=== PATIENT | female | born 1995 | race Two or more races ===

== ENCOUNTER 2025-09-07 15:06 | Inpatient (IN) | payer MEDICAID, OTHER ==
[~2025-09-07] VITALS: Ht 165.1 cm; Wt 48.9 kg
--- NOTE | 2025-09-07 18:50 | ED.PDOC ---
History of Present Illness HPI Comments 30 y/o F presents with c/c of nonradiating, LLQ abdominal pain, nausea, vomiting, fever, chills, lightheadedness, and dizziness x3 days. Patient also reports on passing out 4 times, already, from not eating properly following initial onset of symptoms. Patient mentions on her menstrual period being heavy, lately, as well. Only history reported of daily alcohol and nicotine vape use. She denies any further acute symptoms. REVIEW OF SYSTEMS: General: No fever, no chills, HEENT: No neck pain, no blurred vision Cardiac: No chest pain. No palpitations. Lungs: No shortness of breath, GI: No abdominal pain, no vomiting Musculoskeletal: No joint pain , no back pain Skin: No rash, no wound Neuro: No headache, no dizziness, no syncope PHYSICAL EXAM: General: Awake, alert and oriented. No acute distress. Skin: Skin in warm, dry and intact without rashes or lesions. HEENT: The head is normocephalic and atraumatic. Conjunctivae are clear without exudates or hemorrhage. Sclera is non-icteric. Neck: Normal range of motion. No JVD. Cardiac: Regular rate Respiratory: No signs of respiratory distress. No Stridor. Extremities: Upper and lower extremities are atraumatic in appearance without deformity. Neurological: The patient is awake, alert and oriented to person, place, and time with normal speech. Speech is clear. There is no facial asymmetry. Psychiatric: Appropriate mood and affect. Good judgement and insight. Chief Complaint: Nausea/Vomiting Time Seen by MD: 18:46 Reviewed Notes: Nurses Notes, Medications, Allergies Allergies: Coded Allergies: NO KNOWN ALLERGIES (Unverified , 09/07/25) Information Source: Patient Mode of Arrival: Ambulatory Severity: Moderate Timing: Days Duration: Since onset Prehospital treatment: None Past Medical History PAST MEDICAL HISTORY: Denies Surgical History: Denies all surgeries FREELANCE PATTERNMAKER History: No Pertinent FREELANCE PATTERNMAKER History Family History Family History: Reviewed,noncontributory to illness, No family hx of Cancer, No family hx of DM, No family hx of Heart jeannie, No family hx of HTN, No family hx ofKidney jeannie, No family hx of Liver jeannie, No family hx of Lung jeannie, No family hx of Stroke Social History Smoker: Other (Nicotine vape use-daily) Alcohol: Heavy (Daily) Drugs: Denies Drug Use Lives In: Home Was a procedure done? Was a procedure done?: No Differential Dx Considerations may include: Differential diagnoses considered include: Abdominal aortic aneurysm, [place], esophageal rupture, intestinal obstruction, mesenteric ischemia, perforated viscus or solid organ rupture, CHF with hepatomegaly, pneumonia, abscess, appendicitis, biliary disease, diverticulitis, gastritis, gastroenteritis, hepatitis, hernia, inflammatory bowel disease, pancreatitis, peptic ulcer disease, urinary tract infection, ureteral colic, constipation, GERD, irritable syndrome, abdominal wall pain, nonspecific abdominal pain, herpes zoster, nephrolithiasis. [ ]Also ruptured ectopic , ovarian torsion/cyst, tubo- ovarian abscess, PID, endometriosis, mittleschmerz. X-Ray, Labs, Meds, VS Vital Signs Date Time Temp Pulse Resp B/P (MAP) Pulse Ox O2 Delivery O2 Flow Rate FiO2 09/07/25 20:26 99.0 09/07/25 18:02 97.8 112 12 137/94 (108) 96 97.8 09/07/25 15:08 97.7 100 16 108/75 100 97.7 Lab Test 09/07/25 19:01 09/07/25 18:56 Range/Units White Blood Count 7.6 4.4-10.8 10^3/uL Red Blood Count 3.96 L 4.0-5.20 10^6/uL Hemoglobin 13.8 12.2-16.2 g/dL Hematocrit 39.5 36.0-46.0 % Mean Corpuscular Volume 99.7 80.0-100.0 fL Mean Corpuscular Hemoglobin 34.8 H 28.0-32.0 pg Mean Corpuscular Hemoglobin Concent 34.9 32.0-36.0 g/dL Red Cell Distribution Width 13.6 11.8-14.3 % Platelet Count 295 140-450 10^3/uL Mean Platelet Volume 7.3 6.9-10.8 fL Neutrophils (%) (Auto) 76.0 37.0-80.0 % Lymphocytes (%) (Auto) 15.6 10.0-50.0 % Monocytes (%) (Auto) 7.8 0.0-12.0 % Eosinophils (%) (Auto) 0.0 0.0-7.0 % Basophils (%) (Auto) 0.6 0.0-2.0 % Neutrophils # (Auto) 5.7 1.6-8.6 10 ^3/uL Lymphocytes # (Auto) 1.2 0.4-5.4 10 ^3/uL Monocytes # (Auto) 0.6 0-1.3 10 ^3/uL Eosinophils # (Auto) 0 0-0.8 10 ^3/uL Basophils # (Auto) 0 0-0.2 10 ^3/uL Nucleated Red Blood Cells 0.1 % Sodium Level 139 136-145 mmol/L Potassium Level 4.1 3.5-5.1 mmol/L Chloride Level 99 98-107 mmol/L Carbon Dioxide Level 21 20-31 mmol/L Anion Gap 19 H 5-15 Blood Urea Nitrogen 9 9-23 mg/dL Creatinine 0.86 0.550-1.02 mg/dL Glomerular Filtration Rate Calc 94 >90 mL/min BUN/Creatinine Ratio 10.5 10.0-20.0 Serum Glucose 168 H 74-106 mg/dL Lactic Acid Level 8.0 *H 0.4-2.0 mmol/L Calcium Level 9.4 8.7-10.4 mg/dL Lipase 34 12-53 U/L Plasma/Serum Blood Alcohol 348.9 H <10 mg/dL Urine Color Colorless Yellow Urine Clarity Clear Clear Urine pH 5.5 5.0-9.0 Urine Specific [place] 1.004 1.001-1.035 Urine Protein Negative Negative Urine Ketones 1+ H Negative Urine Blood 1+ H Negative /uL Urine Nitrite Negative Negative Urine Bilirubin Negative Negative Urine Urobilinogen Normal Negative mg/dL Urine Leukocyte Esterase Negative Negative /uL Urine RBC <1 0 - 4 /hpf Urine Microscopic WBC 1 0-5 /HPF Urine Squamous Epithelial Cells Few <5 /hpf Urine Bacteria Few H None Seen /hpf Urine Glucose Normal Normal mg/dL Urine Test Negative Negative Current Medications Medications (Trade) Dose Ordered Sig/Dian Route Start Time Stop Time Status Last Admin Pantoprazole Sodium (Protonix) 40 mg ONCE ONCE IV 09/07/25 18:45 09/07/25 18:50 DC 09/07/25 19:08 Ketorolac Tromethamine (Toradol Injection) 15 mg ONCE ONCE IV 09/07/25 18:45 09/07/25 18:50 DC 09/07/25 19:09 Ondansetron HCl (Zofran) 4 mg ONCE ONCE IV 09/07/25 18:45 09/07/25 18:50 DC 09/07/25 19:08 Sodium Chloride 1,000 ml @ 1,000 mls/hr Q1H ONCE IV 09/07/25 18:45 09/07/25 19:44 DC 09/07/25 18:53 Sodium Chloride 1,000 ml @ 1,000 mls/hr Q1H ONCE IV 09/07/25 20:15 09/07/25 21:14 DC 09/07/25 20:21 Acetaminophen (Tylenol Tablet) 1,000 mg ONCE ONCE PO 09/07/25 20:15 09/07/25 20:16 DC 09/07/25 20:26 ORDERING PHYSICIAN: JAI BRUCE MD PROCEDURE(s): ABPLIV - CT AB PEL WITH IV CON ONLY REASON: LT SIDE ABDOMINAL PAIN ORDER NUMBER(s): [id number], ACCESSION NUMBER(s): [id number] EXAM: CT CT AB PEL WITH IV CON ONLY HISTORY: LT SIDE ABDOMINAL PAIN TECHNIQUE: Volumetric multidetector CT images of the abdomen and pelvis were obtained after the administration of intravenous contrast. All CT scans at this facility use dose modulation, iterative reconstruction, and/or weight based dosing when appropriate to reduce radiation dose to as low as reasonably achievable. COMPARISON: None FINDINGS: [LOWER CHEST]: The partially visualized lung bases are clear without a pleural effusion. [LIVER]: Hepatomegaly [GALLBLADDER AND BILIARY TREE]: No cholelithiasis. [SPLEEN]: Unremarkable. [PANCREAS]: Unremarkable. [ADRENAL GLANDS]: Unremarkable [KIDNEYS]: No hydronephrosis. No nephroureterolithiasis. Lateral pelviectasis [BLADDER]: Unremarkable for the degree distention. [REPRODUCTIVE ORGANS]: Unremarkable. [BOWEL/MESENTERY]: Stomach is normal. No CT evidence of bowel obstruction. inconspicuous air-fluid levels of the distal lumbar loops in the lower pelvis. No abnormal dilation correlate for inconspicuous enteritis in the appropriate clinical setting. Question normal appendix. [ASCITES]: Absent [LYMPHADENOPATHY]: No pathologically enlarged lymph nodes by CT size criteria [VASCULATURE]: No aneurysmal dilatation. [ABDOMINAL WALL]: Unremarkable. [MUSCULOSKELETAL]: No acute fracture or aggressive focal osseous lesion. IMPRESSION: 1. Inconspicuous air-fluid levels of the distal lumbar loops in the lower pelvis. 2. No abnormal dilation correlate for inconspicuous enteritis in the appropriate clinical setting. 3. No CT evidence of bowel obstruction. 4. Hepatomegaly. Time of 1ST Reevaluation: 18:46 Reevaluation 1ST: Unchanged Patient Education/Counseling: Other Family Education/Counseling: No Family Present SEPSIS Sepsis Screen Date sepsis recognized/suspect: Sep 07, 2025 Time Sepsis recognized/suspect: 1511 Recent Procedure: No On Antibiotic Therapy: No Respiratory Rate >20: No Heart Rate >90: Yes Temp<36 C (96.8 F) or >38.3 C: No SBP <90 or MAP <65 mmHG: No New Acute Mental Status Change: No Is the patient on CPAP, BIPAP,: No Physician Orders Ct Ab Pel With Iv Con Only (09/07/25 20:01) Blood Culture (09/07/25 20:01) Vital Signs Date Time Temp Pulse Resp B/P (MAP) Pulse Ox O2 Delivery O2 Flow Rate FiO2 09/07/25 20:26 99.0 09/07/25 18:02 97.8 112 12 137/94 (108) 96 97.8 09/07/25 15:08 97.7 100 16 108/75 100 97.7 Laboratory Tests Test 09/07/25 19:01 Lactic Acid Level 8.0 mmol/L (0.4-2.0) *H White Blood Count 7.6 10^3/uL (4.4-10.8) Medications Medications Dose Ordered Sig/Dian Route Start Time Stop Time Status Last Admin Dose Admin Acetaminophen 1,000 mg ONCE ONCE PO 09/07/25 20:15 09/07/25 20:16 DC 09/07/25 20:26 Ketorolac Tromethamine 15 mg ONCE ONCE IV 09/07/25 18:45 09/07/25 18:50 DC 09/07/25 19:09 Ondansetron HCl 4 mg ONCE ONCE IV 09/07/25 18:45 09/07/25 18:50 DC 09/07/25 19:08 Pantoprazole Sodium 40 mg ONCE ONCE IV 09/07/25 18:45 09/07/25 18:50 DC 09/07/25 19:08 Sodium Chloride 1,000 ml @ 1,000 mls/hr Q1H ONCE IV 09/07/25 18:45 09/07/25 19:44 DC 09/07/25 18:53 Sodium Chloride 1,000 ml @ 1,000 mls/hr Q1H ONCE IV 09/07/25 20:15 09/07/25 21:14 DC 09/07/25 20:21 Departure 1 Departure Time of Disposition: 21:40 Impression: Primary Impression: Intractable nausea and vomiting Additional Impressions: Enteritis Lactic acidemia Alcohol intoxication Disposition: ADMITTED INPATIENT Condition: Stable Comments MDM: Patient admitted to hospitalist service for further treatment, evaluation and monitoring. Extensive evaluation was performed in attempt to identify or rule out: (See differential diagnosis section) The following tests were ordered, and results were reviewed by me and discussed with patient: (See diagnostic results section) Decision regarding hospitalization or escalation of hospital level of care: Risk and benefits of admission for further treatment of patient's condition was considered. Due to patient's current clinical condition, high risk of decline and poor outcome if discharged and need for further inpatient management and monitoring, patient will be admitted to the hospital. Drug therapy requiring intensive monitoring for toxicity: IV contrast Parenteral controlled substances: IV Compazine Critical Care Note Critical Care Time?: No Stability Stability form required: No Heart Score Heart Score: Heart Score Response (Comments) Value History N/A 0 EKG N/A 0 Age N/A 0 Risk Factors N/A 0 Troponin N/A 0 Total 0 I personally scribed for JAI BRUCE MD ([email or web address]) on 09/07/25 at 18:50. Electronically submitted by Dario Okeefe ([email or web address]). I personally scribed for JAI BRUCE MD ([email or web address]) on 09/07/25 at 19:48. Electronically submitted by Dario Okeefe ([email or web address]). JAI BRUCE MD Sep 07, 2025 18:50
[2025-09-07] MEDS: SODIUM CHLORIDE 0.9% 1,000 ML IV ONE ×3 (18:53→22:05)
[2025-09-07] MEDS: ONDANSETRON HCL 4 MG/2 ML VIAL IV ONE (19:08)
[2025-09-07] MEDS: PANTOPRAZOLE 40 MG/10 ML VIAL INJ IV ONE (19:08)
[2025-09-07] MEDS: KETOROLAC TROMETH 30 MG/ML 1ML VIAL IV ONE (19:09)
[2025-09-07 19:24] LABS: Hemoglobin 13.8 g/dL (12.2-16.2)
[2025-09-07 19:26] LABS: Hematocrit 39.5 % (36.0-46.0); Mean Corpuscular Hemoglobin 34.8 pg (28.0-32.0); Mean Corpuscular Volume 99.7 fL (80.0-100.0); Nucleated Red Blood Cells % 0.1 %
[2025-09-07 19:33] LABS: Chloride 99 mmol/L (98-107); Potassium 4.1 mmol/L (3.5-5.1); Sodium 139 mmol/L (136-145)
[2025-09-07 19:34] LABS: Anion Gap 19 (5-15); Carbon Dioxide 21 mmol/L (20-31)
[2025-09-07 19:35] LABS: Calcium 9.4 mg/dL (8.7-10.4)
[2025-09-07 19:39] LABS: BUN/Creatinine Ratio 10.5 (10.0-20.0); Blood Urea Nitrogen 9 mg/dL (9-23)
[2025-09-07 19:40] LABS: Glucose 168 mg/dL (74-106); Lipase 34 U/L (12-53)
[2025-09-07 19:51] LABS: Lactic Acid w/Reflex 8.0 mmol/L (0.4-2.0)
[2025-09-07 20:11] LABS: Urine Protein, UAD Negative (Negative)
[2025-09-07] MEDS: ACETAMINOPHEN 325 MG TAB PO ONE (20:26)
--- NOTE | 2025-09-07 20:53 | DVH ---
EXAM: CT CT AB PEL WITH IV CON ONLY HISTORY: LT SIDE ABDOMINAL PAIN TECHNIQUE: Volumetric multidetector CT images of the abdomen and pelvis were obtained after the administration of intravenous contrast. All CT scans at this facility use dose modulation, iterative reconstruction, and/or weight based dosing when appropriate to reduce radiation dose to as low as reasonably achievable. COMPARISON: None FINDINGS: [LOWER CHEST]: The partially visualized lung bases are clear without a pleural effusion. [LIVER]: Hepatomegaly [GALLBLADDER AND BILIARY TREE]: No cholelithiasis. [SPLEEN]: Unremarkable. [PANCREAS]: Unremarkable. [ADRENAL GLANDS]: Unremarkable [KIDNEYS]: No hydronephrosis. No nephroureterolithiasis. Lateral pelviectasis [BLADDER]: Unremarkable for the degree distention. [REPRODUCTIVE ORGANS]: Unremarkable. [BOWEL/MESENTERY]: Stomach is normal. No CT evidence of bowel obstruction. inconspicuous air-fluid levels of the distal lumbar loops in the lower pelvis. No abnormal dilation correlate for inconspicuous enteritis in the appropriate clinical setting. Question normal appendix. [ASCITES]: Absent [LYMPHADENOPATHY]: No pathologically enlarged lymph nodes by CT size criteria [VASCULATURE]: No aneurysmal dilatation. [ABDOMINAL WALL]: Unremarkable. [MUSCULOSKELETAL]: No acute fracture or aggressive focal osseous lesion. IMPRESSION: 1. Inconspicuous air-fluid levels of the distal lumbar loops in the lower pelvis. 2. No abnormal dilation correlate for inconspicuous enteritis in the appropriate clinical setting. 3. No CT evidence of bowel obstruction. 4. Hepatomegaly.
[2025-09-07] MEDS: PROCHLORPERAZINE EDISYLATE 5 MG/ML 2ML VIAL IV ONE (21:59)
--- NOTE | 2025-09-07 22:39 | DVHHPRES ---
History of Present Illness Resident Creating Document: BOB MORELAND History of Present Illness Patient is a 30-year-old female with no significant past medical history, presented to [facility] ED with complaint of left lower abdominal pain for 3 days. The pain was described as sharp, constant, non-radiating pain localized to the left lower quadrant, associated with nausea and vomiting. She reports that the symptoms began approximately 3 days ago. She admits to a history of heavy alcohol use for over 6 years, with a recent binge drinking over the past 3 weeks. Her last alcohol intake was yesterday with 6 shots of vodka. The patient also reports experiencing 3 episodes of passing out, which she attributes to poor oral intake since the onset of symptoms. On evaluation in the ED, patient is afebrile, vitals are stable. Initial labs show significant lactic acid 8.0, serum glucose 168 and serum alcohol 348.9. Abdominal CT shows inconspicuous air-fluid levels of the distal lumbar loops in the lower pelvis. The patient was placed NPO, started on IV Ativan and IV fluids. Patient is admitted for further evaluation and management. Past Surgical History: None Family History: None Smoke: No ALCOHOL: heavy Drugs: Marijuana Review of Systems Review of Systems Constitutional: Fever, chills, dizziness Eyes: No Pain, No Vision change, No Conjunctivae inflammation, No Eyelid inflammation, No Other, No Redness ENT: No Ear pain, No Ear discharge, No Nose pain, No Nose discharge, No Nose congestion, No Mouth pain, No Mouth swelling, No Throat pain, No Throat swelling, No Other Cardiovascular: No Chest Pain, No Palpitations, No Orthopnea, No Paroxysmal No Dyspnea, No Edema, Lt Headedness, No Other Respiratory: No Cough, No Dry, No Shortness of breath, No SOB with exertion, No Wheezing, No Hemoptysis, No Pleuritic Pain, No Sputum, No Other Gastrointestinal: Nausea, Vomiting, Abdominal Pain, No Diarrhea, No Constipation, No Melena, No Hematochezia, No Other Genitourinary: No Dysuria, No Frequency, No Incontinence, No Hematuria, No Retention, No Other Musculoskeletal: No other, No neck pain, No shoulder pain, No arm pain, No back pain, No hand pain, No leg pain, No foot pain Skin: No Rash, No Lesions, No Jaundice, No Bruising, No Other Allergies: Coded Allergies: NO KNOWN ALLERGIES (Unverified , 09/07/25) Exam Vital Signs Vital Signs Date Time Temp Pulse Resp B/P (MAP) Pulse Ox O2 Delivery O2 Flow Rate FiO2 09/07/25 20:26 99.0 09/07/25 18:02 112 12 137/94 (108) 96 Exam General Appearance: Moderate to severe distress. Cooperative. Well developed. Well nourished. NAD Head Exam: Normal inspection Neck Exam: Normal inspection. Non-tender. Normal alignment Pulmonary/Respiratory: Chest non-tender. Clear bilateral breath sounds, no crackles, no wheezing. Cardiovascular/Chest: Regular rate and rhythm. No murmurs. No JVD. Peripheral Pulses: 2+ Radial (R). 2+ Radial (L). 2+ Pedal (R). 2+ Pedal (L) Abdominal Exam: LLQ tenderness. Normal bowel sounds. Soft. normal abdomen, no visible veins, Nontender. No hepatospenomegaly. No masses Ankle Exam: Negative ankle edema Lower extremities: Negative lower extremity edema Neuro/Mental Status: A&O x4. Coherent. Thoughts/Psych: Normal thought pattern. Appropriate mood and affect. Good judgement and insight Skin Exam: Normal inspection. Normal color. Warm. Dry Labs/Xrays Labs Test 09/07/25 21:20 09/07/25 19:01 09/07/25 18:56 Range/Units Lactic Acid Level 5.1 *H 0.4-2.0 mmol/L White Blood Count 7.6 4.4-10.8 10^3/uL Red Blood Count 3.96 L 4.0-5.20 10^6/uL Hemoglobin 13.8 12.2-16.2 g/dL Hematocrit 39.5 36.0-46.0 % Mean Corpuscular Volume 99.7 80.0-100.0 fL Mean Corpuscular Hemoglobin 34.8 H 28.0-32.0 pg Mean Corpuscular Hemoglobin Concent 34.9 32.0-36.0 g/dL Red Cell Distribution Width 13.6 11.8-14.3 % Platelet Count 295 140-450 10^3/uL Mean Platelet Volume 7.3 6.9-10.8 fL Neutrophils (%) (Auto) 76.0 37.0-80.0 % Lymphocytes (%) (Auto) 15.6 10.0-50.0 % Monocytes (%) (Auto) 7.8 0.0-12.0 % Eosinophils (%) (Auto) 0.0 0.0-7.0 % Basophils (%) (Auto) 0.6 0.0-2.0 % Neutrophils # (Auto) 5.7 1.6-8.6 10 ^3/uL Lymphocytes # (Auto) 1.2 0.4-5.4 10 ^3/uL Monocytes # (Auto) 0.6 0-1.3 10 ^3/uL Eosinophils # (Auto) 0 0-0.8 10 ^3/uL Basophils # (Auto) 0 0-0.2 10 ^3/uL Nucleated Red Blood Cells 0.1 % Sodium Level 139 136-145 mmol/L Potassium Level 4.1 3.5-5.1 mmol/L Chloride Level 99 98-107 mmol/L Carbon Dioxide Level 21 20-31 mmol/L Anion Gap 19 H 5-15 Blood Urea Nitrogen 9 9-23 mg/dL Creatinine 0.86 0.550-1.02 mg/dL Glomerular Filtration Rate Calc 94 >90 mL/min BUN/Creatinine Ratio 10.5 10.0-20.0 Serum Glucose 168 H 74-106 mg/dL Calcium Level 9.4 8.7-10.4 mg/dL Lipase 34 12-53 U/L Plasma/Serum Blood Alcohol 348.9 H <10 mg/dL Urine Color Colorless Yellow Urine Clarity Clear Clear Urine pH 5.5 5.0-9.0 Urine Specific [place] 1.004 1.001-1.035 Urine Protein Negative Negative Urine Ketones 1+ H Negative Urine Blood 1+ H Negative /uL Urine Nitrite Negative Negative Urine Bilirubin Negative Negative Urine Urobilinogen Normal Negative mg/dL Urine Leukocyte Esterase Negative Negative /uL Urine RBC <1 0 - 4 /hpf Urine Microscopic WBC 1 0-5 /HPF Urine Squamous Epithelial Cells Few <5 /hpf Urine Bacteria Few H None Seen /hpf Urine Glucose Normal Normal mg/dL Urine Test Negative Negative SEPSIS Sepsis Screen Date sepsis recognized/suspect: Sep 07, 2025 Time Sepsis recognized/suspect: 1511 Recent Procedure: No On Antibiotic Therapy: No Respiratory Rate >20: No Heart Rate >90: Yes Temp<36 C (96.8 F) or >38.3 C: No SBP <90 or MAP <65 mmHG: No New Acute Mental Status Change: No Is the patient on CPAP, BIPAP,: No Physician Orders Ct Ab Pel With Iv Con Only (09/07/25 20:01) Blood Culture (09/07/25 20:01) Sodium Chloride 0.9% (09/07/25 22:00) Vital Signs Date Time Temp Pulse Resp B/P (MAP) Pulse Ox O2 Delivery O2 Flow Rate FiO2 09/07/25 20:26 99.0 09/07/25 18:02 97.8 112 12 137/94 (108) 96 97.8 09/07/25 15:08 97.7 100 16 108/75 100 97.7 Laboratory Tests Test 09/07/25 19:01 09/07/25 21:20 Lactic Acid Level 8.0 mmol/L (0.4-2.0) *H 5.1 mmol/L (0.4-2.0) *H White Blood Count 7.6 10^3/uL (4.4-10.8) Medications Medications Dose Ordered Sig/Dian Route Start Time Stop Time Status Last Admin Dose Admin Acetaminophen 1,000 mg ONCE ONCE PO 09/07/25 20:15 09/07/25 20:16 DC 09/07/25 20:26 1,000 MG Ketorolac Tromethamine 15 mg ONCE ONCE IV 09/07/25 18:45 09/07/25 18:50 DC 09/07/25 19:09 15 MG Ondansetron HCl 4 mg ONCE ONCE IV 09/07/25 18:45 09/07/25 18:50 DC 09/07/25 19:08 4 MG Pantoprazole Sodium 40 mg ONCE ONCE IV 09/07/25 18:45 09/07/25 18:50 DC 09/07/25 19:08 40 MG Prochlorperazine Edisylate 5 mg ONCE ONCE IV 09/07/25 21:45 09/07/25 21:48 DC 09/07/25 21:59 5 MG Sodium Chloride 1,000 ml @ 130 mls/hr [id number] ONCE IV 09/07/25 22:00 09/08/25 05:41 09/07/25 22:05 130 MLS/HR Sodium Chloride 1,000 ml @ 1,000 mls/hr Q1H ONCE IV 09/07/25 18:45 09/07/25 19:44 DC 09/07/25 18:53 1,000 MLS/HR Sodium Chloride 1,000 ml @ 1,000 mls/hr Q1H ONCE IV 09/07/25 20:15 09/07/25 21:14 DC 09/07/25 20:21 1,000 MLS/HR Assessment/Plan Assessment/Plan Toxic encephalopathy Alcohol intoxication Alcohol withdrawal Alcoholic ketoacidosis Hepatomegaly Intractable abdominal pain due to above Intractable nausea and vomiting due to above Abdomen/pelvis CT: Inconspicuous air-fluid levels of the distal lumbar loops in the lower pelvis. No abnormal dilation correlate for inconspicuous enteritis in the appropriate clinical setting. No CT evidence of bowel obstruction. Hepatomegaly. CIWA: 25 Serum alcohol: 348.9 NPO Liver US ordered Chest X-ray ordered UA and UDS Blood culture MG Hepatic panel pain management with Dilaudid 0.5 MG IV q4h prn Lorazepam 1 MG IV q2h Thiamine 100 MG IV daily Folic acid 200 1 mg MLS/HR Zofran 4 MG IV q4h Protonix 40 MG IV daily IV NS 130 MLS/HR Transaminitis ALT 114 ALP 144 monitor Diet: NPO PUD prophylaxis: Protonix 40mg Goals of care: Full code, discussed for >30 minutes on 09/07/25 Plan discussed with patient Plan discussed with Dr. Helton Plan discussed with: Patient Date of Service: Sep 07, 2025 Billing Provider: MICHELE HELTON MD Common Visit Codes: [id number] INP/OBS CARE (HIGH) Secondary Visit Codes: [id number]-[id number] CARE PLAN 30 MINUTES BOB MORELAND RESIDENT Sep 07, 2025 22:39 CHRISTIANE LUDWIG RESIDENT Sep 08, 2025 06:34
[2025-09-07] MEDS ORDERED: LORazepam 2MG/ML-1ML VIAL IV PRN ×2 (22:45)
[2025-09-07] MEDS ORDERED: HYDROmorphone HCL 2 MG/ML VL/or syr IV PRN (22:45)
[2025-09-07] MEDS ORDERED: ONDANSETRON HCL 4 MG/2 ML VIAL IV PRN (22:45)
[2025-09-07 23:21] LABS: Albumin 4.6 g/dL (3.2-4.8); Bilirubin, Direct 0.2 mg/dL (<0.3); Bilirubin, Total 0.6 mg/dL (0.2-1.0); Magnesium 1.8 mg/dL (1.6-2.6); Total Protein 7.8 g/dL (5.7-8.2)
[2025-09-07 23:26] LABS: Cannabinoid Screen, Urine Pos (NEGATIVE)
[2025-09-07 23:37] LABS: Alanine Aminotransferase 114.0 U/L (7-40); Alkaline Phosphatase 144.0 U/L (46-116)
[2025-09-07 23:37] LABS: Amphetamine Screen, Urine Neg (NEGATIVE); Barbiturate Scree,Urine Neg (NEGATIVE); Benzodiazephine Screen, Urine Neg (NEGATIVE); Cocaine Screen, Urine Neg (NEGATIVE); Opiate Scree,Urine Neg (NEGATIVE); Phencyclidine Screen, Urine Neg (NEGATIVE)
[2025-09-07] MEDS: LORazepam 2MG/ML-1ML VIAL IV ONE (23:42)
[2025-09-07] MEDS: FOLIC ACID 1 MG in D5W 5% 50 ML INJ STA (23:50)
--- NOTE | 2025-09-07 23:59 | DVH ---
INDICATION: abdominal pain TECHNIQUE: Multiple real-time sonographic images were obtained of the right upper quadrant. COMPARISON: None FINDINGS: Liver is enlarged measuring 16.5 cm with moderate diffuse fatty infiltration. No focal lesion is seen. There is no intrahepatic or extrahepatic ductal dilatation. The common duct measures 0.4 cm. The gallbladder is without evidence of stone or sludge. The gallbladder wall measures 0.2 cm and is within normal limits. The right kidney measures 10.5 cm. The right kidney is normal in contour, size, and shape. The echogenicity is normal. There is no hydronephrosis. The pancreas is not well visualized due to overlying bowel gas. IMPRESSION: Moderate hepatic steatosis with hepatomegaly.
[2025-09-08] VITALS: BP 95/62; PULSE 84; RESP 16; TEMP 98.4; O2SAT 98
--- NOTE | 2025-09-08 00:13 | DVH ---
CHEST RADIOGRAPH Indication: chest pain Technique: Single frontal view of the chest was obtained COMPARISON: None FINDINGS: Lungs and pleural spaces are clear. Cardiac silhouette and herb are within normal limits. Bones and soft tissues demonstrate no significant abnormality. IMPRESSION: No acute disease.
[2025-09-08] MEDS: FOLIC ACID 1 MG TAB PO ONE (02:43)
[2025-09-08 04:17] VITALS: BP 100/62; PULSE 74; RESP 16; TEMP 98.1; O2SAT 97
[2025-09-08 06:35] LABS: Hematocrit 34.9 % (36.0-46.0); Hemoglobin 11.9 g/dL (12.2-16.2); Mean Corpuscular Hemoglobin 33.8 pg (28.0-32.0); Mean Corpuscular Volume 99.2 fL (80.0-100.0); Nucleated Red Blood Cells % 0.1 %
[2025-09-08 06:47] LABS: Alkaline Phosphatase 100 U/L (46-116); Carbon Dioxide 22 mmol/L (20-31); Chloride 106 mmol/L (98-107)
[2025-09-08 06:48] LABS: Albumin 3.5 g/dL (3.2-4.8); Anion Gap 15 (5-15); Bilirubin, Total 0.7 mg/dL (0.2-1.0); Lipase 31 U/L (12-53); Sodium 143 mmol/L (136-145); Total Protein 6.0 g/dL (5.7-8.2)
[2025-09-08 06:50] LABS: Alanine Aminotransferase 77 U/L (7-40); BUN/Creatinine Ratio 7.9 (10.0-20.0); Blood Urea Nitrogen < 5 mg/dL (9-23); Calcium 8.1 mg/dL (8.7-10.4); Glucose 65 mg/dL (74-106); Potassium 3.4 mmol/L (3.5-5.1)
[2025-09-08] MEDS: MAGNESIUM SULFATE 1GM/100ML 100 ML IV ONE (07:15)
[2025-09-08] MEDS: POTASSIUM CHL 20MEQ/100ML 100 ML IV ONE (07:15)
[2025-09-08 07:30] VITALS: BP 107/74; PULSE 54; RESP 16; TEMP 98.5; O2SAT 98
[2025-09-08 07:33] LABS: Lactic Acid w/Reflex 2.8 mmol/L (0.4-2.0)
[2025-09-08 08:30] VITALS: BP 98/53; PULSE 69; RESP 16; TEMP 97.7; O2SAT 99
[2025-09-08] MEDS: PANTOPRAZOLE 40 MG/10 ML VIAL INJ IV SCH (09:57)
[2025-09-08] MEDS: THIAMINE 100mg/ml INJ (200mg/2ml VIAL) IV SCH (10:00)
[2025-09-08 12:31] VITALS: BP 105/63; PULSE 59; RESP 16; TEMP 98.2; O2SAT 97
[2025-09-08 15:04] LABS: Albumin 3.4 g/dL (3.2-4.8); Alkaline Phosphatase 101.0 U/L (46-116); Bilirubin, Direct 0.3 mg/dL (<0.3); Bilirubin, Total 0.9 mg/dL (0.2-1.0); Total Protein 5.9 g/dL (5.7-8.2)
[2025-09-08 15:05] LABS: Alanine Aminotransferase 73.0 U/L (7-40)
[2025-09-08 15:08] LABS: INR 1.11 (0.9-1.15); Partial Thromboplastin Time 26.4 SEC (24.5-34.5); Prothrombin Time 11.6 sec (9.3-11.8)
[2025-09-08 17:00] VITALS: BP 107/74; PULSE 54; RESP 16; TEMP 98.5; O2SAT 98
[2025-09-08] MEDS: FOLIC ACID 1 MG, MULTIPLE VITAMIN 10 ML, MAGNESIUM SULF SDV 50% 8 MEQ, THIAMINE INJ 100... INJ SCH (18:00)
--- NOTE | 2025-09-08 20:52 | DVHPNRES ---
Progress Note Date Seen: Sep 08, 2025 Resident Creating Document: TAO STORM RESIDENT Has the PT tested + for MRSA If YES, has PT been informed?: No Medical Necessity Reason Pt with a Central, PICC or Fol: No Subjective Review of Systems Fermín Vigil is a 30-year-old female with no significant past medical history. The patient presented to [facility] with complaint of 3 days of abdominal pain, 10/10, sharp, constant, non-radiating pain localized to the left lower quadrant, associated with nausea and vomiting. On further questioning, the patient reports heavy alcohol use for over the last 6 years, with a recent binge drinking over the past 3 weeks. Her last alcohol intake was yesterday with 6 shots of vodka. The patient also reports experiencing 3 episodes of fainting, which she attributes to poor oral intake since the onset of symptoms. The patient reports that she is not from the area, she is from [facility], living in the area since one month ago. On evaluation in the ED, patient is afebrile, vitals are stable. Initial labs show significant lactic acid 8.0, serum glucose 168 and serum alcohol 348.9. Abdominal CT shows inconspicuous air-fluid levels of the distal lumbar loops in the lower pelvis. The patient was placed NPO, started on IV Ativan and IV fluids. Patient was admitted for further evaluation and management. Past Surgical History: None Family History: None Smoke: No. Alcohol: heavy: 6 shots of vodka daily. Drugs: Marijuana Hospital course: The patient was examined and evaluated at bedside. Vs, labs and chart was reviewed. Repeated lactic acid is 1.1. The patient continues with bannana bag IV fluids. CIWAS score is 3 at this time. The patient report doing better, nausea and vomit has stopped. She has tolerate the clear liquid diet. Abdominal pain has improved to 5/50with analgesia. A new social service consult was placed to provide home recourses. We will continue monitoring the progress of this patient. Review of Systems Constitutional: Fatigue, headache. Eyes: No Pain, No Vision change, No Conjunctivae inflammation, No Eyelid inflammation, No Other, No Redness ENT: No Ear pain, No Ear discharge, No Nose pain, No Nose discharge, No Nose congestion, No Mouth pain, No Mouth swelling, No Throat pain, No Throat swelling, No Other Cardiovascular: No Chest Pain, No Palpitations, No Orthopnea, No Paroxysmal No Dyspnea, No Edema, Lt Headedness, No Other Respiratory: No Cough, No Dry, No Shortness of breath, No SOB with exertion, No Wheezing, No Hemoptysis, No Pleuritic Pain, No Sputum, No Other Gastrointestinal: Nausea, Vomiting, Abdominal Pain 5/10, No Diarrhea, No Constipation, No Melena, No Hematochezia, No Other Genitourinary: No Dysuria, No Frequency, No Incontinence, No Hematuria, No Retention, No Other Musculoskeletal: No other, No neck pain, No shoulder pain, No arm pain, No back pain, No hand pain, No leg pain, No foot pain Skin: No Rash, No Lesions, No Jaundice, No Bruising, No Other Allergies: no known allergies Objective vital signs Vital Sign Date Time Temp Pulse Resp B/P (MAP) Pulse Ox O2 Delivery O2 Flow Rate FiO2 09/08/25 17:00 98.5 54 16 107/74 (85) 98 98.5 09/08/25 07:30 Room Air* 0 21 Total Intake and Output 09/07/25 09/07/25 09/08/25 15:00 23:00 07:00 Intake Total 2000 ml 130 ml Balance 2000 ml 130 ml medications Current Medications Medications Dose Ordered Sig/Dian Route Start Time Stop Time Status Last Admin Dose Admin Ondansetron HCl 4 mg Q4HP PRN IV 09/07/25 22:45 Hydromorphone HCl 0.5 mg Q4HPRN PRN IV 09/07/25 22:45 Thiamine HCl 100 mg DAILY IV 09/08/25 10:00 09/08/25 10:00 100 MG Lorazepam 1 mg Q2H PRN IV 09/07/25 22:45 Pantoprazole Sodium 40 mg DAILY IV 09/08/25 10:00 09/08/25 09:57 40 MG Folic Acid 1 mg/ Multivitamins 10 ml/Magnesium Sulfate 8 meq/ Thiamine HCl 100 mg/Dextrose 1,013.2 ml @ 125.001 mls/hr DAILY@1800 INJ 09/08/25 18:00 09/08/25 18:00 125.001 MLS/HR Examination General Appearance: Cooperative. Well developed. NAD Head Exam: Normal inspection Neck Exam: Normal inspection. Non-tender. Normal alignment Pulmonary/Respiratory: Chest non-tender. Clear bilateral breath sounds, no crackles, no wheezing. Cardiovascular/Chest: Regular rate and rhythm. No murmurs. No JVD. Peripheral Pulses: 2+ Radial (R). 2+ Radial (L). 2+ Pedal (R). 2+ Pedal (L) Abdominal Exam: LLQ tenderness. Normal bowel sounds. Soft. normal abdomen, no visible veins, Nontender. No hepatospenomegaly. No masses Ankle Exam: Negative ankle edema Lower extremities: Negative lower extremity edema Neuro/Mental Status: A&O x3. Coherent. Thoughts/Psych: Normal thought pattern. Skin Exam: Normal inspection. Normal color. Warm. Dry laboratory and microbiology Laboratory Tests 09/08/25 05:30 Test 09/08/25 05:30 Range/Units Serum Glucose 65 L 74-106 mg/dL Problem List/Assessment/Plan Problem List/Assessment/Plan #Acute Alcohol Toxic encephalopathy #Acute Alcohol intoxication #Acute Alcohol withdrawal #Acute Alcoholic ketoacidosis #Chronic Hepatomegaly #Acute Intractable abdominal pain due to acute Enteritis #Acute Intractable nausea and vomiting due to above Abdomen/pelvis CT: Inconspicuous air-fluid levels of the distal lumbar loops in the lower pelvis. No abnormal dilation correlate for inconspicuous enteritis in the appropriate clinical setting. No CT evidence of bowel obstruction. Hepatomegaly. CIWAS score: 3 Serum alcohol: 348.9 Bannana bag Lorazepam 1 MG IV q2h Thiamine 100 MG IV daily Folic acid 200 1 mg MLS/HR Zofran 4 MG IV q4h Protonix 40 MG IV daily IV NS 130 MLS/HR #Acute Transaminitis ALT 114 ALP 144 monitor Liver USG #Hypocaloric Malnutrition possible due to chronic alcohol abuse BMI 17.9 Iron Panel B12 levels #Chronic alcohol abuse Counseling about alcohol cessation >10 min Alcohol dependence program counseling #Marijuana abuse Counseling about alcohol cessation >10 min Diet: Clear liquid diet. PUD prophylaxis Protonix 40mg Goals of care: discussed for >30 minutes on Plan discussed with patient Code Status Full code. Plan discussed with Dr. Helton Plan discussed with: Patient My Orders My Orders Orders - TAO STORM RESIDENT Procedure Category Date Status Time Clear Liq Diet DIET 09/08/25 Transmitted Breakfast * It Infrastructure Consultant CONS 09/08/25 Transmitted Consult Covid19 Antigen Elaine LAB 09/08/25 Logged Rapid Influenza A&B LAB 09/08/25 Logged 13:10 Date of Service: Sep 08, 2025 Billing Provider: MICHELE HELTON MD Common Visit Codes: [id number] INP/OBS CARE(HIGH) TAO STORM RESIDENT Sep 08, 2025 20:52
[2025-09-09] MEDS: KETOROLAC TROMETH 30 MG/ML 1ML VIAL IV ONE (01:11)
[2025-09-09 05:00] VITALS: BP 95/48; PULSE 50; RESP 17; TEMP 97.9; O2SAT 99
[2025-09-09 05:40] LABS: Magnesium 2.2 mg/dL (1.6-2.6)
[2025-09-09 05:42] LABS: Iron 202.0 ug/dL (50-170); Potassium 3.2 mmol/L (3.5-5.1)
[2025-09-09 05:43] LABS: Total Iron Binding Capacity 228.0 ug/dL (250-425)
[2025-09-09] MEDS: SODIUM CHLORIDE 0.9% 500 ML IV ONE ×2 (05:45→06:30)
[2025-09-09 08:00] VITALS: PULSE 60; RESP 18; O2SAT 100
[2025-09-09 08:41] LABS: Alanine Aminotransferase 75 U/L (7-40); Albumin 3.4 g/dL (3.2-4.8); Alkaline Phosphatase 105 U/L (46-116); BUN/Creatinine Ratio 6.5 (10.0-20.0); Bilirubin, Total 1.2 mg/dL (0.2-1.0); Blood Urea Nitrogen < 5 mg/dL (9-23); Calcium 8.6 mg/dL (8.7-10.4); Carbon Dioxide 29 mmol/L (20-31); Glucose 77 mg/dL (74-106); Potassium 3.5 mmol/L (3.5-5.1); Sodium 139 mmol/L (136-145); Total Protein 5.8 g/dL (5.7-8.2)
[2025-09-09 08:50] LABS: Anion Gap 10 (5-15); Chloride 100 mmol/L (98-107)
[2025-09-09 09:00] VITALS: BP 94/63; PULSE 60; RESP 18; TEMP 97.7; O2SAT 100
[2025-09-09 09:02] LABS: COVID19 ANTIGEN SOFIA FIA NEGATIVE (NEGATIVE)
--- NOTE | 2025-09-09 21:37 | DVHDSRES ---
Discharge Summary Date of Admission Resident Creating Document: TAO STORM RESIDENT Sep 07, 2025 at 22:39 Date of Discharge: Sep 09, 2025 Admitting Diagnosis #Acute Alcohol Toxic encephalopathy #Acute Alcohol intoxication #Acute Alcohol withdrawal #Acute Alcoholic ketoacidosis #Acute Intractable abdominal pain due to acute possible viral gastroenteritis #Acute Intractable nausea and vomiting due to possible viral gastroenteritis. Wounds: No wounds present on admission. Labs/Diagnostic Data: Laboratory Results Test 09/09/25 04:44 09/08/25 15:14 09/08/25 14:27 09/08/25 08:00 Sodium Level 139 mmol/L (136-145) Potassium Level 3.5 mmol/L (3.5-5.1) Chloride Level 100 mmol/L (98-107) Carbon Dioxide Level 29 mmol/L (20-31) Anion Gap 10 (5-15) Blood Urea Nitrogen < 5 mg/dL (9-23) Creatinine 0.77 mg/dL (0.550-1.02) Glomerular Filtration Rate Calc 107 mL/min (>90) BUN/Creatinine Ratio 6.5 (10.0-20.0) Serum Glucose 77 mg/dL (74-106) Calcium Level 8.6 mg/dL (8.7-10.4) Magnesium Level 2.2 mg/dL (1.6-2.6) Iron Level 202 ug/dL (50-170) Total Iron Binding Capacity 228 ug/dL (250-425) Percent Iron Saturation 88.6 % (15-50) Total Bilirubin 1.2 mg/dL (0.2-1.0) Aspartate Amino Transferase (AST) 102 U/L (13-40) Alanine Aminotransferase (ALT) 75 U/L (7-40) Alkaline Phosphatase 105 U/L (46-116) Total Protein 5.8 g/dL (5.7-8.2) Albumin 3.4 g/dL (3.2-4.8) Vitamin B12 Level 1138 pg/mL (211-911) Lactic Acid Level 1.1 mmol/L (0.4-2.0) Prothrombin Time 11.6 sec (9.3-11.8) Prothrombin Time INR 1.11 (0.9-1.15) Activated Partial Thromboplast Time 26.4 SEC (24.5-34.5) Direct Bilirubin 0.3 mg/dL (<0.3) Influenza Type A Antigen Negative (Negative) Influenza Type B Antigen Negative (Negative) SARS-CoV-2 Antigen (Rapid) Negative (NEGATIVE) Test 09/08/25 05:30 09/07/25 19:01 09/07/25 18:56 White Blood Count 4.8 10^3/uL (4.4-10.8) Red Blood Count 3.52 10^6/uL (4.0-5.20) Hemoglobin 11.9 g/dL (12.2-16.2) Hematocrit 34.9 % (36.0-46.0) Mean Corpuscular Volume 99.2 fL (80.0-100.0) Mean Corpuscular Hemoglobin 33.8 pg (28.0-32.0) Mean Corpuscular Hemoglobin Concent 34.1 g/dL (32.0-36.0) Red Cell Distribution Width 13.7 % (11.8-14.3) Platelet Count 221 10^3/uL (140-450) Mean Platelet Volume 7.7 fL (6.9-10.8) Neutrophils (%) (Auto) 56.5 % (37.0-80.0) Lymphocytes (%) (Auto) 29.7 % (10.0-50.0) Monocytes (%) (Auto) 12.5 % (0.0-12.0) Eosinophils (%) (Auto) 0.4 % (0.0-7.0) Basophils (%) (Auto) 0.9 % (0.0-2.0) Neutrophils # (Auto) 2.7 10 ^3/uL (1.6-8.6) Lymphocytes # (Auto) 1.4 10 ^3/uL (0.4-5.4) Monocytes # (Auto) 0.6 10 ^3/uL (0-1.3) Eosinophils # (Auto) 0 10 ^3/uL (0-0.8) Basophils # (Auto) 0 10 ^3/uL (0-0.2) Nucleated Red Blood Cells 0.1 % Lipase 31 U/L (12-53) Hemoglobin A1c 4.9 % A1C (<5.7) Plasma/Serum Blood Alcohol 348.9 mg/dL (<10) Urine Color Colorless (Yellow) Urine Clarity Clear (Clear) Urine pH 5.5 (5.0-9.0) Urine Specific [place] 1.004 (1.001-1.035) Urine Protein Negative (Negative) Urine Ketones 1+ (Negative) Urine Blood 1+ /uL (Negative) Urine Nitrite Negative (Negative) Urine Bilirubin Negative (Negative) Urine Urobilinogen Normal mg/dL (Negative) Urine Leukocyte Esterase Negative /uL (Negative) Urine RBC <1 /hpf (0 - 4) Urine Microscopic WBC 1 /HPF (0-5) Urine Squamous Epithelial Cells Few /hpf (<5) Urine Bacteria Few /hpf (None Seen) Urine Glucose Normal mg/dL (Normal) Urine Test Negative (Negative) Urine Opiates Screen Neg (NEGATIVE) Urine Fentanyl Screen Neg (NEGATIVE) Urine Barbiturates Screen Neg (NEGATIVE) Urine Phencyclidine Screen Neg (NEGATIVE) Urine Amphetamines Screen Neg (NEGATIVE) Urine Benzodiazepines Screen Neg (NEGATIVE) Urine Cocaine Screen Neg (NEGATIVE) Urine Cannabinoids Screen Pos (NEGATIVE) Other Laboratory Tests 09/09/25 04:44 09/08/25 05:30 Brief Hx & Hospital Course: Fermín Vigil is a 30-year-old female with no significant past medical history. The patient presented to [facility] with complaint of 3 days of abdominal pain, 10/10, sharp, constant, non-radiating pain localized to the left lower quadrant, associated with nausea and vomiting. On further questioning, the patient reports heavy alcohol use for over the last 6 years, with a recent binge drinking over the past 3 weeks. Her last alcohol intake was yesterday with 6 shots of vodka. The patient also reports experiencing 3 episodes of fainting, which she attributes to poor oral intake since the onset of symptoms. The patient reports that she is not from the [facility], she is from [facility], living in the area since one month ago. On evaluation in the ED, patient is afebrile, vitals are stable. Initial labs show significant lactic acid 8.0, serum glucose 168 and serum alcohol 348.9. Abdominal CT shows inconspicuous air-fluid levels of the distal lumbar loops in the lower pelvis. The patient was placed NPO, started on IV Ativan and IV fluids. Patient was admitted for further evaluation and management. Past Surgical History: None Family History: None Smoke: No. Alcohol: heavy: 6 shots of vodka daily. Drugs: Marijuana Hospital course: The patient was examined and evaluated at bedside. Vs, labs and chart was reviewed. Repeated lactic acid is 1.1. The patient continues with bannana bag IV fluids. CIWAS score is 3 at this time. The patient report doing better, nausea and vomit has stopped. She has tolerate the clear liquid diet. Abdominal pain has improved to 5/50with analgesia. A new social service consult was placed to provide home recourses. We will continue monitoring the progress of this patient. On 09/09/25, the patient was evaluated and examined at the bedside. Patient reports feeling well. Vital signs, chart, and labs were reviewed. Patient's CIWAS score is 0. No new complaint. The patient has not had nausea, fever, diarrhea or vomiting in the last 24 hour. Due to significant clinical improvement, the patient will be discharged home. Patient was counseling about alcohol cessation. The patient will follow up in the discharge Clinic within 1 week. Review of Systems Constitutional: no headache, no weakness, no chills, no fever, no vomit. Eyes: No Pain, No Vision change, No Conjunctivae inflammation, No Eyelid inflammation, No Other, No Redness ENT: No Ear pain, No Ear discharge, No Nose pain, No Nose discharge, No Nose congestion, No Mouth pain, No Mouth swelling, No Throat pain, No Throat swelling, No Other Cardiovascular: No Chest Pain, No Palpitations, No Orthopnea, No Paroxysmal No Dyspnea, No Edema,No Other Respiratory: No Cough, No Dry, No Shortness of breath, No SOB with exertion, No Wheezing, No Hemoptysis, No Pleuritic Pain, No Sputum, No Other Gastrointestinal: No nausea, vomiting, no Diarrhea, No Constipation, No Melena, No Hematochezia, No Other Genitourinary: No Dysuria, No Frequency, No Incontinence, No Hematuria, No Retention, No Other Musculoskeletal: No other, No neck pain, No shoulder pain, No arm pain, No back pain, No hand pain, No leg pain, No foot pain Skin: No Rash, No Lesions, No Jaundice, No Bruising, No Other Physical exam General Appearance: Cooperative. Well developed. NAD Head Exam: Normal inspection Neck Exam: Normal inspection. Non-tender. Normal alignment Pulmonary/Respiratory: Chest non-tender. Clear bilateral breath sounds, no crackles, no wheezing. Cardiovascular/Chest: Regular rate and rhythm. No murmurs. No JVD. Peripheral Pulses: 2+ Radial (R). 2+ Radial (L). 2+ Pedal (R). 2+ Pedal (L) Abdominal Exam: No abdominal pain Normal bowel sounds. Soft. normal abdomen, no visible veins, Nontender. No hepatospenomegaly. No masses Ankle Exam: Negative ankle edema Lower extremities: Negative lower extremity edema Neuro/Mental Status: A&O x3. Coherent. Thoughts/Psych: Normal thought pattern. Skin Exam: Normal inspection. Normal color. Warm. Dry Consults/Reason for consult No Operations or Procedures PROCEDURE(s): ABPLIV - CT AB PEL WITH IV CON ONLY REASON: LT SIDE ABDOMINAL PAIN ORDER NUMBER(s): [id number], ACCESSION NUMBER(s): [id number] EXAM: CT CT AB PEL WITH IV CON ONLY HISTORY: LT SIDE ABDOMINAL PAIN TECHNIQUE: Volumetric multidetector CT images of the abdomen and pelvis were obtained after the administration of intravenous contrast. All CT scans at this facility use dose modulation, iterative reconstruction, and/or weight based dosing when appropriate to reduce radiation dose to as low as reasonably achievable. COMPARISON: None FINDINGS: [LOWER CHEST]: The partially visualized lung bases are clear without a pleural effusion. [LIVER]: Hepatomegaly [GALLBLADDER AND BILIARY TREE]: No cholelithiasis. [SPLEEN]: Unremarkable. [PANCREAS]: Unremarkable. [ADRENAL GLANDS]: Unremarkable [KIDNEYS]: No hydronephrosis. No nephroureterolithiasis. Lateral pelviectasis [BLADDER]: Unremarkable for the degree distention. [REPRODUCTIVE ORGANS]: Unremarkable. [BOWEL/MESENTERY]: Stomach is normal. No CT evidence of bowel obstruction. inconspicuous air-fluid levels of the distal lumbar loops in the lower pelvis. No abnormal dilation correlate for inconspicuous enteritis in the appropriate clinical setting. Question normal appendix. [ASCITES]: Absent [LYMPHADENOPATHY]: No pathologically enlarged lymph nodes by CT size criteria [VASCULATURE]: No aneurysmal dilatation. [ABDOMINAL WALL]: Unremarkable. [MUSCULOSKELETAL]: No acute fracture or aggressive focal osseous lesion. IMPRESSION: 1. Inconspicuous air-fluid levels of the distal lumbar loops in the lower pelvis. 2. No abnormal dilation correlate for inconspicuous enteritis in the appropriate clinical setting. 3. No CT evidence of bowel obstruction. 4. Hepatomegaly. EDURE(s): CXR1 - CHEST XRAY 1 VIEW REASON: chest pain ORDER NUMBER(s): [id number], ACCESSION NUMBER(s): [id number] CHEST RADIOGRAPH Indication: chest pain Technique: Single frontal view of the chest was obtained COMPARISON: None FINDINGS: Lungs and pleural spaces are clear. Cardiac silhouette and herb are within normal limits. Bones and soft tissues demonstrate no significant abnormality. IMPRESSION: No acute disease. EDURE(s): LIVUS - LIVER REASON: abdominal pain ORDER NUMBER(s): [id number], ACCESSION NUMBER(s): [id number] INDICATION: abdominal pain TECHNIQUE: Multiple real-time sonographic images were obtained of the right upper quadrant. COMPARISON: None FINDINGS: Liver is enlarged measuring 16.5 cm with moderate diffuse fatty infiltration. No focal lesion is seen. There is no intrahepatic or extrahepatic ductal dilatation. The common duct measures 0.4 cm. The gallbladder is without evidence of stone or sludge. The gallbladder wall measures 0.2 cm and is within normal limits. The right kidney measures 10.5 cm. The right kidney is normal in contour, size, and shape. The echogenicity is normal. There is no hydronephrosis. The pancreas is not well visualized due to overlying bowel gas. IMPRESSION: Moderate hepatic steatosis with hepatomegaly. Condition at Discharge: Stable Final Diagnosis/Problems List #Acute Alcohol Toxic encephalopathy #Acute Alcohol intoxication #Acute Alcohol withdrawal #Acute Alcoholic ketoacidosis #Chronic Hepatomegaly #Acute Intractable abdominal pain due to acute possible viral gastroenteritis #Acute Intractable nausea and vomiting to possible viral gastroenteritis #Hypocaloric Malnutrition possible due to chronic alcohol abuse #Chronic alcohol abuse #Chronic Marijuana abuse Discharge Disposition: Home SNF Discharge Will this Physician continue t: No Discharge Instruct/Medications Diet: Regular Activity: No Restrictions, As Tolerated Follow Up/Referral: F/U with PCP in one week. Medications: Continue with home medications No Active Prescriptions or Reported Meds Discharge Statement: "Patient was advised to return to the ER or call 911 if any headaches, dizziness, shortness of breath, chest pain, abdominal pain, bleeding, fevers, or worsening of medical condition. Patient was counseled about treatment plan, medications, possible side effects, patientverbalized understanding. All questions were answered to the best of my ability. This discharge took greater then 30 minutes in planning, reviewing documentation, counseling the patient, and discussing with other team members." ASSESSMENT ASSESSMENT Assessment #Acute Alcohol Toxic encephalopathy #Acute Alcohol intoxication #Acute Alcohol withdrawal #Acute Alcoholic ketoacidosis #Chronic Hepatomegaly #Acute Intractable abdominal pain due to acute possible viral gastroenteritis #Acute Intractable nausea and vomiting due to possible viral gastroenteritis #Hypocaloric Malnutrition possible due to chronic alcohol abuse #Chronic alcohol abuse #Chronic Marijuana abuse Goals of care: discussed for >30 minutes Plan discussed with patient Code Status Full code. PCP: no established, patient will continue follow-up in the discharge Clinic within 1 week. Plan discussed with Dr. Helton Plan discussed with: Patient, patients agrees with the discharge. Date of Service: Sep 09, 2025 Billing Provider: MICHELE HELTON MD Common Visit Codes: 16352-IER/OBS DISCH DAY >30min TAO STORM RESIDENT Sep 09, 2025 21:37
== END 2025-09-09 11:45 | disposition home or self-care (01) | DRG 249 ==
LOC: ER 15:06 → OVERFLOW 22:39
PROVIDERS: ADMIT Internal Medicine; ATTEND Internal Medicine
DX: A08.4 Viral intestinal infection, unspecified (principal); G92.8 Other toxic encephalopathy; E46 Unspecified protein-calorie malnutrition; E87.29 Other acidosis; R16.0 Hepatomegaly, not elsewhere classified; F10.129 Alcohol abuse with intoxication, unspecified; F12.10 Cannabis abuse, uncomplicated; F10.139 Alcohol abuse with withdrawal, unspecified; R74.01 Elevation of levels of liver transaminase levels; F17.290 Nicotine dependence, other tobacco product, uncomplicated; Z20.822 Contact with and (suspected) exposure to COVID-19; Y90.8 Blood alcohol level of 240 mg/100 ml or more; Z68.1 Body mass index [BMI] 19.9 or less, adult; Z71.41 Alcohol abuse counseling and surveillance of alcoholic; Z79.899 Other long term (current) drug therapy
CPT/HCPCS: 36415; 71045; 74177; 76705; 80048; 80053; 80076; 80307; 80320; 81001; 81025; 82607; 83036; 83540; 83550; 83605; 83690; 83735; 84132; 85025; 85610; 85730; 87040; 87426; 87804; 96374; 96375; G0378; J1885; J2405; J2470; J3480; J7060